=== PATIENT | male | born 2000 | race Caucasian/White ===

== ENCOUNTER 2021-04-09 17:07 | Emergency (ER) | payer OTHER ==
[~2021-04-09] VITALS: Ht 180.3 cm; Wt 104.3 kg
--- NOTE | 2021-04-09 17:24 | NUR ---
BIBS FOR SOB S/P BEING AROUND A GOD. ALLERGIC TO DOG. REQUESTING ALBUTEROL INHALER AND COVID RAPID TEST. RESPIRATION REGULAR AND UNLABORED. WILL CONTINUE TO MONITOR THE PATIENT.
[2021-04-09] MEDS ORDERED: ALBU18HF2 INH (17:25)
[2021-04-09] MEDS ORDERED: CETI-90 PO (17:25)
--- NOTE | 2021-04-09 17:49 | NUR ---
COVID ANTIGEN SWAB DONE AND SENT TO THE LAB
[2021-04-09 17:59] VITALS: BP 130/75
--- NOTE | 2021-04-09 17:59 | NUR ---
Patient discharged to home in stable condition. Written and verbal after care instructions given. Patient verbalizes understanding of instruction.
== END 2021-04-09 17:59 | disposition home or self-care (01) ==
LOC: ER 17:13
DX: J45.909 Unspecified asthma, uncomplicated (principal); Z20.822 Contact with and (suspected) exposure to COVID-19; F31.9 Bipolar disorder, unspecified; Z76.0 Encounter for issue of repeat prescription
CPT/HCPCS: 87426; 99283; C9803